=== PATIENT | female | born 1990 | race Caucasian/White ===

== ENCOUNTER 2021-08-21 14:59 | Emergency (ER) | payer BC, SELFPAY ==
[2021-08-21 15:30] VITALS: BP 127/101; PULSE 91; RESP 20; TEMP 36; O2SAT 98
--- NOTE | 2021-08-21 15:30 | ECG_ITS ---
Measurements Intervals [place] Rate: 78 P: 52 MD: 118 QRS: 89 QRSD: 93 T: 50 QT: 404 QTc: 462 Interpretive Statements SINUS RHYTHM WITH SHORT MD INTERVAL BORDERLINE T WAVE ABNORMALITY- ANTERIOR LEADS BORDERLINE ECG Electronically Signed On 08-21-2021 16:22:28 CDT by Jaret Linder D.O.
--- NOTE | 2021-08-21 15:36 | ED.ARRPALP ---
HPI - Arrhythmia/Palpitations General Chief Complaint: Arrhythmia/Palpitations Stated Complaint: increased HR, hot flashes, light headed, dizzy Time Seen by Provider: 08/21/21 15:36 Source: patient History of Present Illness HPI narrative: 31-year-old female of ADHD, anxiety with prior panic attacks presents to the ER with acute onset -- palpitation while she was doing some art work. No chest pain or shortness of breath she takes sertraline, Wellbutrin, Adderall, montelukast and control pills on a regular basis. The patient smoked some marijuana today. -- Nausea with multiple episodes of vomiting. Decreased oral intake. MD complaint: rapid heart beat and palpitations Onset (ago): hour(s) ( Started 3 hours ago.) Duration: constant Severity: mild Context: occurred during rest Associated symptoms: denies other symptoms, nausea and vomiting Related Data Home Medications Medication Instructions Recorded Confirmed albuterol sulfate 2 inh INHALATION Q4H PRN 08/21/21 08/21/21 bupropion HCl 300 mg PO DAILY 08/21/21 08/21/21 dextroamphetamine-amphetamine 20 mg PO DAILY 08/21/21 08/21/21 drospirenone-ethinyl estradiol 1 tablet PO DAILY 08/21/21 08/21/21 montelukast 10 mg PO DAILY 08/21/21 08/21/21 sertraline 50 mg PO DAILY 08/21/21 08/21/21 Allergies Allergy/AdvReac Type Severity Reaction Status Date / Time Penicillins Allergy Unknown Verified 08/21/21 15:59 Review of Systems Review of Systems: All systems reviewed & are unremarkable except as noted in HPI and below Constitutional: Constitutional: Reports as per HPI and Reports no additional constitutional complaints Eyes: Eyes: Reports as per HPI and Reports no additional eye complaints ENT: Reports system reviewed and no additional complaints, except as documented and Reports as per HPI Cardiovascular: Cardiovascular: Reports as per HPI and Reports no additional cardiovascular complaints Respiratory: Respiratory: Reports as per HPI and Reports no additional respiratory complaints Gastrointestinal: Gastrointestinal: Reports as per HPI, Reports no additional gastrointestinal complaints, Reports nausea and Reports vomiting Genitourinary: Genitourinary: Reports no additional female genitourinary complaints and Reports as per HPI Musculoskeletal: Musculoskeletal: Reports no additional musculoskeletal complaints and Reports as per HPI Integumentary/Breasts: Skin/Breast: Reports system reviewed and no additional complaints, except as docu and Reports as per HPI Neurologic: Reports system reviewed and no additional complaints, except as documented and Reports as per HPI Psychiatric: Psychiatric: Reports no additional psychiatric complaints and Reports as per HPI Endocrine: Endocrine: Reports no additional endocrine complaints and Reports as per HPI Hematologic/Lymphatic: Hematologic/Lymphatic: Reports no additional hematologic/lymphatic complaints and Reports as per HPI Allergic/Immunologic: Allergic/Immunologic: Reports no additional allergic/immunologic complaints and Reports as per HPI Exam Const: General: no acute distress Orientation/consciousness: patient oriented x3 HENMT: Head: normal to inspection Face and sinus: normal facial exam Eyes: Conjunctivae: conjunctivae normal Pupils: Equal, round and reactive pupils present Neck: Neck: normal visual inspection and no lymphadenopathy Chest: Chest palpation & inspection: normal inspection of the chest Resp: Effort & Inspection: normal respiratory effort Auscultation: clear to auscultation bilaterally Cardio: Rate: regular rate Rhythm: regular rhythm GI: Auscultation: normal bowel sounds : General: Yes no CVA tenderness Back/Spine/Pelvis: Back: no CVA tenderness Skin: General skin exam: normal color Rashes: no rashes Neuro: General: patient oriented x3, moves all extremities, no meningeal signs, no focal motor deficits and CN's II-XI intact bilaterally Extrem: General: normal to inspe
[2021-08-21 16:00] LABS: Appearance Urine Slightly Cloudy (Clear); Basophils Absolute Auto 0.05 K/mm3 (0.00-0.10); Basophils Percent Auto 0.5 % (0.0-1.0); Bilirubin Urine Negative (Negative); Blood Urine Negative (Negative); Color Urine Light Yellow (Yellow); Eosinophils Absolute Auto 0.04 K/mm3 (0.02-0.50); Eosinophils Percent Auto 0.4 % (1.0-6.0); Glucose Urine UA Negative (Negative); Hematocrit 38.8 % (35.0-49.0); Hemoglobin 13.3 g/dL (12.0-15.0); Immature Granulocyte Absolute 0.03 K/mm3 (0.00-0.00); Immature Granulocyte Percent A 0.3 % (0.0-0.0); Ketones Urine Negative (Negative); Leukocyte Esterase Ur Negative (Negative); Lymphocytes Absolute Auto 1.45 K/mm3 (1.10-4.50); Lymphocytes Percent Auto 15.7 % (18.0-42.0); Mean Corpuscular HGB Conc 34.3 g/dL (32.0-36.0); Mean Corpuscular Volume 84.5 fL (78.0-102.0); Monocytes Absolute Auto 0.32 K/mm3 (0.10-0.90); Monocytes Percent Auto 3.5 % (2.0-11.0); Neutrophils Absolute Auto 7.3 K/mm3 (1.7-7.2); Neutrophils Percent Auto 79.6 % (50.0-70.0); Nitrate Urine Negative (Negative); Platelet Count Result 341 K/mm3 (150-420); Protein Urine Negative (Negative); Red Blood Count 4.59 M/mm3 (4.20-5.40); Red Cell Distribution Width 11.9 % (11.6-14.4); Specific Grav Ur 1.025 (1.010-1.020); Urobilinogen Urine 0.2 mg/dL (0.2-1.0); White Blood Count 9.2 K/mm3 (4.8-10.8)
[2021-08-21 16:04] LABS: Pregnancy On Board Control Positive; Urine Pregnancy Test Negative
[2021-08-21 16:05] LABS: Add Urine Microscopic? YES; Bacteria Urine 3+ /hpf; RBC Urine None seen /hpf (0-2); Squamous Epithelial Cell Urine Moderate /hpf (Few); WBC Urine None seen /hpf (0-3)
[2021-08-21 16:09] VITALS: BP 124/96; PULSE 73; RESP 20; O2SAT 100
[2021-08-21 16:11] LABS: D Dimer 0.23 mg/L (0.19-0.50)
[2021-08-21 16:15] VITALS: PULSE 74; RESP 20; O2SAT 100
[2021-08-21 16:22] LABS: Alanine Aminotransferase 18 U/L (14-59); Albumin Level 3.6 g/dL (3.4-5.0); Alkaline Phosphatase 68 U/L (46-116); Anion Gap 7 mmol/L (8-16); Aspartate Amino Transferase 14 U/L (15-37); Bilirubin,Total 0.3 mg/dL (0.00-1.00); Blood Urea Nitrogen 8 mg/dL (7-18); Calcium 8.9 mg/dL (8.5-10.1); Carbon Dioxide 27 mmol/L (21-32); Chloride 100 mmol/L (98-108); Estimated CRCL calculation 65 ml/min; Estimated Glomerular Filt Rate > 60; Glucose 105 mg/dL (70-99); Osmolality Calculated 276 mOsm/kg (285-295); Potassium 3.8 mmol/L (3.5-5.1); Sodium 134 mmol/L (136-145); Thyroid Stimulating Hormone 2.58 uIU/mL (0.36-3.74); Total Protein 7.9 g/dL (6.4-8.2); Troponin I 4.2 ng/L (0.00-60.4)
[2021-08-21 16:32] VITALS: PULSE 79; RESP 20; O2SAT 99
[2021-08-21 16:45] VITALS: PULSE 82; RESP 20
[2021-08-21 16:53] VITALS: BP 133/83; PULSE 75; RESP 20; TEMP 36.7; O2SAT 99
== END 2021-08-21 17:02 | disposition home or self-care (01) ==
PROVIDERS: Emergency Provider Internal Medicine Critical Care Medicine; PCP Internal Medicine
DX: R00.2 Palpitations (principal); F41.9 Anxiety disorder, unspecified
CPT/HCPCS: 36415; 80053; 81001; 81025; 84443; 84484; 85025; 85380; 93005; 99283

== ENCOUNTER 2023-12-30 10:54 | Outpatient (CLI) | payer BC, SELFPAY ==
[2023-12-30 12:36] LABS: Basophils Absolute Auto 0.1 K/mm3 (0.0-0.1); Basophils Percent Auto 0.5 % (0.2-1.2); Eosinophils Absolute Auto 0.1 K/mm3 (0-0.3); Eosinophils Percent Auto 0.5 % (0-4.4); Hematocrit 37.4 % (37.0-47.0); Immature Granulocyte Absolute 0.06 K/mm3 (0.00-0.031); Immature Granulocyte Percent A 0.6 % (0-0.5); Lymphocytes Absolute Auto 2.17 K/mm3 (0.9-3.2); Lymphocytes Percent Auto 20.6 % (18.3-44.2); Mean Corpuscular HGB Conc 34.8 g/dl (32-36); Mean Corpuscular Hemoglobin 29.9 pg (26-34); Mean Platelet Volume 10.8 fl (7.4-10.4); Monocytes Absolute Auto 0.6 K/mm3 (0.1-0.6); Monocytes Percent Auto 5.4 % (2.6-8.5); Neutrophils Absolute Auto 7.6 K/mm3 (1.3-6.7); Neutrophils Percent Auto 72.4 % (45.5-73.1); Platelet Count Result 221 k/mm3 (150-375); Red Blood Count 4.35 M/mm3 (4.2-5.4); Red Cell Distribution Width 12.9 % (11.5-14.5); White Blood Count 10.5 K/mm3 (4.5-10.0)
[2023-12-30 12:46] LABS: Alanine Aminotransferase 18 U/L (6-35); Albumin Level 3.5 g/dL (3.5-5.1); Alkaline Phosphatase 108 U/L (38-126); Anion Gap 7 mmol/L (4-12); Aspartate Amino Transferase 24 U/L (14-36); Bilirubin,Total 0.4 mg/dL (0.2-1.3); Blood Urea Nitrogen 8 mg/dL (7-17); Calcium 8.9 mg/dL (8.4-10.2); Carbon Dioxide 23 mmol/L (22-30); Chloride 103 mmol/L (98-107); Estimated Glomerular Filt Rate > 60; Glucose 77 mg/dL (65-110); Sodium 133 mmol/L (137-145); Uric Acid 4.5 mg/dL (2.5-7.5)
[2023-12-30 12:48] LABS: Add Urine Microscopic? YES; Appearance Urine Cloudy (Clear); Bacteria Urine 3+ /hpf; Bilirubin Urine Negative (Negative); Blood Urine 1+ (Negative); Color Urine Yellow (Yellow); Glucose Urine UA Negative (Negative); Ketones Urine Trace mg/dL (Negative); Leukocyte Esterase Ur 1+ LEU/UL (Negative); Need Manual Microscopic Reviewed; Nitrate Urine Negative (Negative); Protein Urine Trace mg/dL (Negative); RBC Urine 21-50 /hpf (0-2); Specific Grav Ur 1.022 (1.001-1.035); Squamous Epithelial Cell Urine Few /hpf (Few); WBC Urine 21-50 /hpf (0-3); pH Urine 6.5 (5.0-9.0)
--- NOTE | 2023-12-30 13:03 | PC.NURSE ---
Dr Camejo informed of BP's and reactive tracing. Orders for labs.
[2023-12-30] MEDS: NIFEdipine 10 MG CAPSULE PO (13:38)
--- NOTE | 2023-12-30 14:00 | PC.NURSE ---
Dr Camejo on unit, BP's reviewed and ok to dc home.
[2023-12-30 14:04] VITALS: BMI 31.0
[2023-12-30 18:13] LABS: Creatinine Urine 229.8 mg/dL; Total Protein Urine Random 14 mg/dL; Ur Ttl Prot Creatinine Ratio 0.06 mg/mg (0-0.20)
== END 2023-12-30 14:04 | disposition home or self-care (01) ==
LOC: ANHOBOP 15:05
PROVIDERS: PCP Internal Medicine; Visit Provider Obstetrics & Gynecology
DX: O13.9 Gestational [pregnancy-induced] hypertension without significant proteinuria, unspecified trimester (principal)
CPT/HCPCS: 36415; 59025; 80053; 81001; 82570; 84156; 84550; 85025; 87086; A9270

== ENCOUNTER 2023-12-31 00:55 | Observation (INO) | payer OTHER, SELFPAY ==
[2023-12-31] VITALS (46 sets, daily range): BP systolic 120–173; BP diastolic 73–110; PULSE 53–118; O2SAT 96–99; BMI 30.6
--- NOTE | 2023-12-31 00:55 | PC.NURSE ---
Patient arrives to OB unit with complaints of N/V/D since 11pm, and a headache since 3:30pm. Patient states she took tylenol at 7pm this evening and has not had any relief with her headache. Patient was seen earlier today for elevated blood pressures, NST, and labs. Patient was started on procardia 30xl at home as well as a UTI medication. Patient states she took both medications at home. Patient is a EDC 02/20/24. Patient has postive movement. Patient denies vaginal bleeding and leaking of fluid. Patient has had emesis x5 since arriving as well as diarrhea x2.
[2023-12-31 01:33] LABS: Basophils Absolute Auto 0.1 K/mm3 (0.0-0.1); Basophils Percent Auto 0.4 % (0.2-1.2); Eosinophils Absolute Auto 0.1 K/mm3 (0-0.3); Eosinophils Percent Auto 0.8 % (0-4.4); Hematocrit 36.8 % (37.0-47.0); Hemoglobin 12.8 g/dL (12.0-15.0); Immature Granulocyte Absolute 0.08 K/mm3 (0.00-0.031); Immature Granulocyte Percent A 0.6 % (0-0.5); Lymphocytes Absolute Auto 2.89 K/mm3 (0.9-3.2); Mean Corpuscular HGB Conc 34.8 g/dl (32-36); Mean Corpuscular Hemoglobin 29.8 pg (26-34); Mean Corpuscular Volume 85.8 fl (80-100); Mean Platelet Volume 10.7 fl (7.4-10.4); Monocytes Absolute Auto 0.8 K/mm3 (0.1-0.6); Monocytes Percent Auto 5.5 % (2.6-8.5); Neutrophils Absolute Auto 9.9 K/mm3 (1.3-6.7); Neutrophils Percent Auto 71.7 % (45.5-73.1); Platelet Count Result 245 k/mm3 (150-375); Red Blood Count 4.29 M/mm3 (4.2-5.4); White Blood Count 13.8 K/mm3 (4.5-10.0)
[2023-12-31 01:43] LABS: Chloride 100 mmol/L (98-107); Potassium 3.9 mmol/L (3.4-5.0); Sodium 130 mmol/L (137-145)
[2023-12-31 01:44] LABS: Alanine Aminotransferase 18 U/L (6-35); Albumin Level 3.6 g/dL (3.5-5.1); Alkaline Phosphatase 115 U/L (38-126); Anion Gap 9 mmol/L (4-12); Aspartate Amino Transferase 26 U/L (14-36); Bilirubin,Total 0.4 mg/dL (0.2-1.3); Blood Urea Nitrogen 8 mg/dL (7-17); Calcium 8.7 mg/dL (8.4-10.2); Carbon Dioxide 21 mmol/L (22-30); Estimated CRCL calculation 95 ml/min; Estimated Glomerular Filt Rate > 60; Glucose 91 mg/dL (65-110); Uric Acid 4.1 mg/dL (2.5-7.5)
[2023-12-31] MEDS: LACTATED RINGERS 1,000 ML 999 ML IV CONT (01:54)
[2023-12-31] MEDS: ONDANSETRON INJ 4 MG/2 ML VIAL IV PUSH (01:54)
[2023-12-31] MEDS: diphenhydrAMINE HCl INJ 50 MG/ML VIAL 25 MG IV PUSH (01:54)
[2023-12-31 02:46] LABS: SARS-CoV-2 RNA PCR Negative (Negative)
--- NOTE | 2023-12-31 03:00 | PC.NURSE ---
Addendum entered by Mariel Plunkett RN 12/31/23 03:22: RN updated MD regarding patient status. RN notified MD that patient is rating her headache a 4-5/10 on the pain scale now and it was 8-9/10 before interventions. RN also notified MD of FHT tracing as well as contraction pattern. MD gave orders for blood pressures and contractions, see MAR. MD also gave orders to put patient in as observation. Original Note: RN updated MD regarding patient status. RN notified MD that patient is rating her headache a 4-5/10 on the pain scale now and it was 8-9/10 before interventions. RN also notified MD of FHT tracing as well as contraction pattern. MD gave orders for headache and contractions, see MAR. MD also gave orders to put patient in as observation.
[2023-12-31] MEDS: TERBUTALINE SULFATE 1 MG/ML VIAL 0.25 MG SUB-Q ×2 (04:01→04:40)
[2023-12-31] MEDS: DEXTROSE 5%/0.45% SOD CHL 1,000 ML 250 ML IV CONT (05:58)
[2023-12-31 06:13] LABS: Creatinine Urine 112.5 mg/dL; Total Protein Urine Random 24 mg/dL; Ur Ttl Prot Creatinine Ratio 0.21 mg/mg (0-0.20)
[2023-12-31 06:24] LABS: Fetal Fibronectin Negative
--- NOTE | 2023-12-31 06:35 | OBADM ---
This patient, Bailey Doyle, admitted to the OB room OB Post 116 for observation. Patient/family oriented to hospital policies and general routines including ID bracelet, bed and alarms, visiting hours, pain management, procedures, bathroom and other care routines, personal items, smoking policy, room service/diet, and visiting hours. Patient/Family are encouraged to report perceived risks to care and to ask questions if they do not understand what they are told or what they should do.
[2023-12-31 07:23] LABS: Add Urine Microscopic? YES; Appearance Urine Cloudy (Clear); Bacteria Urine 1+ /hpf; Bilirubin Urine Negative (Negative); Blood Urine Non-Hemolyzed Trace (Negative); Color Urine Yellow (Yellow); Glucose Urine UA Negative (Negative); Ketones Urine 1+ mg/dL (Negative); Leukocyte Esterase Ur 1+ LEU/UL (Negative); Need Manual Microscopic Reviewed; Nitrate Urine Negative (Negative); Non Pathogenic Casts 0-2; Protein Urine 1+ mg/dL (Negative); Specific Grav Ur 1.017 (1.001-1.035); Squamous Epithelial Cell Urine Occasional /hpf (Few); Urobilinogen Urine 0.2 mg/dL (<2.0); pH Urine 6.5 (5.0-9.0)
--- NOTE | 2023-12-31 09:07 | WPDOBADMIT ---
Obstetrics - Admit Note Admission Note: 33 y/o G1 at 32 weeks with known polyhydramnios, yesterday found to have elevated bp and cystitis. Was sent home on Procardia XL 30 mg daily and Macrobid 100 mg po bid. Came back last night with headache and associated vomiting. Was found to have contractions. Symptoms resolved after two doses of terbutaline, IV hydration, antiemetics. No headache, no contractions currently. FFN neg. AVSS NST reactive TOCO: no contractions currently. ABD soft, nontender, gravid EXT nontender, with 1+ edema Cervix closed per RN. A: IUP at 32 weeks with n/v, better now. contractions, resolved. Gestational HTN,. P: Home to continue Procardia and Macrobid. Zofran 4 mg odt q 6 h prn nausea. Collect 24 hour urine for protein. Call office for follow up.
--- NOTE | 2024-01-01 12:01 | PM.OBTRLD ---
OB - Triage/Final Diagnosis Visit Information Comments/Additional reasons for admission: I have assessed the risk for this patient, Bailey Doyle, and determined that she would benefit from observation care. Evaluation Laboratory results: Laboratory Tests 12/31/23 12/31/23 12/31/23 01:19 02:00 05:40 WBC 13.8 H RBC 4.29 Hgb 12.8 Hct 36.8 L MCV 85.8 MCH 29.8 MCHC 34.8 RDW 13.0 Plt Count 245 MPV 10.7 H Immature Gran % (Auto) 0.6 H Neut % (Auto) 71.7 Lymph % (Auto) 21.0 [place] % (Auto) 5.5 Eos % (Auto) 0.8 Baso % (Auto) 0.4 Lymph # (Auto) 2.89 [place] # (Auto) 0.8 H Eos # (Auto) 0.1 Baso # (Auto) 0.1 Abs Immat Gran (auto) 0.08 H Absolute Neuts (auto) 9.9 H Absolute Nucleated RBC 0.000 Nucleated RBC % 0.0 Sodium 130 L Potassium 3.9 Chloride 100 Carbon Dioxide 21 L Anion Gap 9 BUN 8 Creatinine 0.70 Estim Creat Clear Calc 95 Estimated GFR > 60 Glucose 91 Uric Acid 4.1 Calcium 8.7 Total Bilirubin 0.4 AST 26 ALT 18 Alkaline Phosphatase 115 Total Protein 7.0 Albumin 3.6 Urine Color Yellow Urine Appearance Cloudy H Urine pH 6.5 Ur Specific [place] 1.017 Urine Protein 1+ H Urine Glucose (UA) Negative Urine Ketones 1+ H Ur Blood (Man) Non-hemolyzed trace H Urine Nitrate Negative Urine Bilirubin Negative Urine Urobilinogen 0.2 Add Ur Microanalysis Reviewed Leukocyte Esterase Rfl 1+ H Urine RBC 11-20 H Urine WBC 11-20 H Ur Squamous Epith Cells Occasional Urine Bacteria 1+ H Urine Casts 0-2 U Random Total Protein Cancelled Urine Creatinine Cancelled Protein/Creat Ratio 2 Cancelled SARS-CoV-2 RNA (RT-PCR) Negative Fibronectin Negative 12/31/23 06:00 WBC RBC Hgb Hct MCV MCH MCHC RDW Plt Count MPV Immature Gran % (Auto) Neut % (Auto) Lymph % (Auto) [place] % (Auto) Eos % (Auto) Baso % (Auto) Lymph # (Auto) [place] # (Auto) Eos # (Auto) Baso # (Auto) Abs Immat Gran (auto) Absolute Neuts (auto) Absolute Nucleated RBC Nucleated RBC % Sodium Potassium Chloride Carbon Dioxide Anion Gap BUN Creatinine Estim Creat Clear Calc Estimated GFR Glucose Uric Acid Calcium Total Bilirubin AST ALT Alkaline Phosphatase Total Protein Albumin Urine Color Urine Appearance Urine pH Ur Specific [place] Urine Protein Urine Glucose (UA) Urine Ketones Ur Blood (Man) Urine Nitrate Urine Bilirubin Urine Urobilinogen Add Ur Microanalysis Leukocyte Esterase Rfl Urine RBC Urine WBC Ur Squamous Epith Cells Urine Bacteria Urine Casts U Random Total Protein 24 Urine Creatinine 112.5 Protein/Creat Ratio 2 0.21 H SARS-CoV-2 RNA (RT-PCR) Fibronectin Final Diagnosis (1) Gestational hypertension: Code(s): O13.9 - Gestational [-induced] hypertension without significant proteinuria, unspecified trimester Status: Acute
== END 2023-12-31 10:00 | disposition home or self-care (01) ==
LOC: ANHOBOP 01:05 → ANHOBPP 03:07
PROVIDERS: Admitting Provider Obstetrics & Gynecology; PCP Registered Nurse; Visit Provider Obstetrics & Gynecology
DX: O13.3 Gestational [pregnancy-induced] hypertension without significant proteinuria, third trimester (principal); O60.03 Preterm labor without delivery, third trimester; O40.3XX0 Polyhydramnios, third trimester, not applicable or unspecified; O23.13 Infections of bladder in pregnancy, third trimester; N30.90 Cystitis, unspecified without hematuria; Z3A.32 32 weeks gestation of pregnancy; Z20.822 Contact with and (suspected) exposure to COVID-19
CPT/HCPCS: 36415; 80053; 81001; 82570; 82731; 84156; 84550; 85025; 87635; 96372; G0378; G0379; J1200; J2405; J3105; J7120

== ENCOUNTER 2024-01-01 10:18 | Outpatient (NON) | payer OTHER, SELFPAY ==
[2024-01-01 10:52] VITALS: BMI 31.0
[2024-01-01 12:49] LABS: Total Volume 24 Hour Urine 1300 ml
[2024-01-01 12:49] LABS: Total Volume 24 Hour Urine 1300 ml
[2024-01-01 13:20] LABS: Total Protein Urine 24 Hr 221 mg/24hr (28-141); Total Protein Urine Random 17 mg/dL
[2024-01-01 13:21] LABS: Creatinine 24 Hour Urine 0.9 gm/24 (0.8-1.8); Creatinine Urine 69.5 mg/dL
== END 2024-01-01 10:19 | disposition home or self-care (01) ==
LOC: ANHOBOP 10:44
PROVIDERS: PCP Registered Nurse; Visit Provider Obstetrics & Gynecology
DX: O13.9 Gestational [pregnancy-induced] hypertension without significant proteinuria, unspecified trimester (principal); Z3A.00 Weeks of gestation of pregnancy not specified
CPT/HCPCS: 81050; 82570; 84156

== ENCOUNTER 2024-01-07 20:41 | Observation (INO) | payer OTHER, SELFPAY ==
[2024-01-07] VITALS (14 sets, daily range): BP systolic 144–185; BP diastolic 88–113; PULSE 64–82; BMI 29.8
[2024-01-07 18:21] LABS: Basophils Percent Auto 0.3 % (0.2-1.2); Eosinophils Percent Auto 0.4 % (0-4.4); Hematocrit 33.9 % (37.0-47.0); Hemoglobin 11.9 g/dL (12.0-15.0); Immature Granulocyte Absolute 0.02 K/mm3 (0.00-0.031); Immature Granulocyte Percent A 0.2 % (0-0.5); Lymphocytes Absolute Auto 2.47 K/mm3 (0.9-3.2); Lymphocytes Percent Auto 22.7 % (18.3-44.2); Mean Corpuscular HGB Conc 35.1 g/dl (32-36); Mean Corpuscular Hemoglobin 29.7 pg (26-34); Mean Corpuscular Volume 84.5 fl (80-100); Mean Platelet Volume 10.7 fl (7.4-10.4); Monocytes Absolute Auto 0.7 K/mm3 (0.1-0.6); Neutrophils Absolute Auto 7.7 K/mm3 (1.3-6.7); Neutrophils Percent Auto 70.4 % (45.5-73.1); Platelet Count Result 213 k/mm3 (150-375); Red Blood Count 4.01 M/mm3 (4.2-5.4); White Blood Count 10.9 K/mm3 (4.5-10.0)
[2024-01-07 18:29] LABS: Creatinine Urine 102.2 mg/dL
[2024-01-07 18:30] LABS: Anion Gap 7 mmol/L (4-12); Carbon Dioxide 20 mmol/L (22-30); Chloride 103 mmol/L (98-107); Potassium 3.7 mmol/L (3.4-5.0); Sodium 130 mmol/L (137-145)
[2024-01-07 18:31] LABS: Add Urine Microscopic? YES; Alanine Aminotransferase 16 U/L (6-35); Albumin Level 3.3 g/dL (3.5-5.1); Alkaline Phosphatase 100 U/L (38-126); Appearance Urine Cloudy (Clear); Aspartate Amino Transferase 28 U/L (14-36); Bacteria Urine 4+ /hpf; Bilirubin Urine Negative (Negative); Bilirubin,Total 0.3 mg/dL (0.2-1.3); Blood Urea Nitrogen 9 mg/dL (7-17); Blood Urine Non-Hemolyzed Trace (Negative); Calcium 8.6 mg/dL (8.4-10.2); Color Urine Yellow (Yellow); Estimated Glomerular Filt Rate > 60; Glucose 83 mg/dL (65-110); Glucose Urine UA Negative (Negative); Ketones Urine Trace mg/dL (Negative); Leukocyte Esterase Ur 1+ LEU/UL (Negative); Mucus Urine Present /lpf; Need Manual Microscopic Reviewed; Nitrate Urine Negative (Negative); Protein Urine 1+ mg/dL (Negative); Specific Grav Ur 1.027 (1.001-1.035); Squamous Epithelial Cell Urine Moderate /hpf (Few); Uric Acid 4.5 mg/dL (2.5-7.5); WBC Urine 51-100 /hpf (0-3); pH Urine 6.5 (5.0-9.0)
[2024-01-07] MEDS: LABETALOL HCL 100 MG TABLET 200 MG PO (18:37)
[2024-01-07 18:41] LABS: Total Protein Urine Random 13 mg/dL; Ur Ttl Prot Creatinine Ratio 0.13 mg/mg (0-0.20)
[2024-01-07] MEDS: BETAMETHASONE SOD PHOS/ACETATE 30 MG/5 ML VIAL 12 MG IM (18:46)
[2024-01-07] MEDS: NIFEdipine 30 MG TAB.ER.24 PO (19:20)
[2024-01-07] MEDS: hydrALAZINE HCL 20 MG/ML VIAL 5 MG IV PUSH (20:21)
[2024-01-07] MEDS: LACTATED RINGERS 1,000 ML 125 ML IV CONT (20:31)
[2024-01-07] MEDS: LORATADINE 10 MG TABLET PO (20:58)
--- NOTE | 2024-01-07 21:54 | OBADM ---
This patient, Bailey Doyle, admitted to the OB room OB Post 115 for observation. Patient/family oriented to hospital policies and general routines including ID bracelet, bed and alarms, visiting hours, pain management, procedures, bathroom and other care routines, personal items, smoking policy, room service/diet, and visiting hours. Patient/Family are encouraged to report perceived risks to care and to ask questions if they do not understand what they are told or what they should do.
[2024-01-08] VITALS (40 sets, daily range): BP systolic 136–173; BP diastolic 85–114; PULSE 76–119; TEMP 36.5–36.9
--- NOTE | 2024-01-08 08:45 | PC.NURSE ---
Dr. Camejo reviewed BPs.
[2024-01-08] MEDS: LABETALOL HCL 100 MG TABLET 200 MG PO ×2 (08:48→15:48)
--- NOTE | 2024-01-08 08:52 | PC.NURSE ---
Dr. Camejo at bedside to assess pt and discuss plan of care.
--- NOTE | 2024-01-08 11:10 | PC.NURSE ---
Called Dr. Camejo with pt update. BPs given. Informed of contractions q 2-6 min, mostly q 4-6. Pt states that she only feels movement. No new orders at this time. Dr. Camejo will come to see pt.
--- NOTE | 2024-01-08 12:24 | PC.NURSE ---
Dr. Camejo on unit. BPs and contractions reviewed. BPs q 30 min until decreased. August D/C TOCO and monitor with NST.
--- NOTE | 2024-01-08 12:29 | PM.IMHP ---
H&P: HPI History of Present Illness Date/Time: 01/08/24 12:29 Chief Complaint: Elevated bp Narrative: 33 y/o G1 at 33 6/7 weeks with gestational HTN who had elevated bp at home yesterday, presented to L&D. No headache or abdominal pain. She has polyhydramnios and has an appointment with [facility] next week. 24 hour urine protein was 221 last week. Has been taking Procardia XL 30 mg daily, last dose last evening. Has received hydralazine x 1, and has started labetalol 200 mg po q 8 hours. Review of Systems Review of Systems: All systems reviewed & are unremarkable except as noted in HPI and below Meds Home Medications and Allergies Home Medications Medication Instructions Recorded Confirmed Type albuterol sulfate 90 mcg/actuation 2 inh inhalation Q4H PRN Shortness 08/21/21 01/07/24 History aerosol inhaler Of Breath montelukast 10 mg tablet 10 mg PO DAILY 08/21/21 01/07/24 History sertraline 50 mg tablet 100 mg PO DAILY 08/21/21 01/07/24 History nifedipine 30 mg tablet,extended 30 mg PO DAILY 60 days #60 tabs 12/30/23 01/07/24 Rx release 24 hr (Procardia XL) ondansetron 4 mg disintegrating 4 mg PO Q6H PRN nausea and 12/31/23 01/07/24 Rx tablet vomiting #20 tabs Zyrtec 10 mg PO QHS 01/07/24 01/07/24 History Allergies Allergy/AdvReac Type Severity Reaction Status Date / Time Penicillins Allergy Mild Unknown Verified 01/07/24 18:42 nut - unspecified Allergy Unknown Verified 01/07/24 18:56 Sulfa (Sulfonamide Allergy Unknown Verified 01/07/24 18:56 Antibiotics) Vital Signs Vital Signs - 24 hr 01/07/24 17:45 01/07/24 17:56 01/07/24 18:15 Temperature Pulse Rate 75 64 66 Blood Pressure 172/112 H 175/107 H 171/113 H Oxygen Delivery 01/07/24 18:30 01/07/24 18:45 01/07/24 19:00 Temperature Pulse Rate 67 67 68 Blood Pressure 185/112 H 169/112 H 179/107 H Oxygen Delivery 01/07/24 19:15 01/07/24 19:30 01/07/24 19:45 Temperature Pulse Rate 69 74 65 Blood Pressure 178/111 H 166/104 H 173/106 H Oxygen Delivery 01/07/24 20:00 01/07/24 20:15 01/07/24 20:30 Temperature Pulse Rate 74 74 79 Blood Pressure 161/107 H 156/111 H 148/88 H Oxygen Delivery 01/07/24 20:45 01/08/24 00:01 01/08/24 04:27 Temperature Pulse Rate 82 78 78 Blood Pressure 144/95 H 154/98 H 153/101 H Oxygen Delivery 01/08/24 08:40 01/08/24 08:45 01/08/24 09:00 Temperature Pulse Rate 77 86 94 Blood Pressure 165/107 H 166/104 H 160/109 H Oxygen Delivery 01/08/24 09:30 01/08/24 10:00 01/08/24 10:30 Temperature Pulse Rate 90 88 96 Blood Pressure 159/108 H 159/103 H 151/106 H Oxygen Delivery 01/08/24 11:00 01/08/24 11:30 01/08/24 12:00 Temperature Pulse Rate 97 101 H 92 Blood Pressure 141/94 H 146/104 H 154/101 H Oxygen Delivery 01/07/24 18:37 01/07/24 21:53 01/08/24 08:40 Temperature 36.9 C Pulse Rate 68 Blood Pressure Oxygen Delivery Room Air 01/08/24 08:48 01/08/24 11:43 Temperature 36.5 C Pulse Rate 86 Blood Pressure Oxygen Delivery Exam Const: Orientation/consciousness: patient oriented x3 Other: Well-developed, well-nourished female in no acute distress. Neck: Thyroid: thyroid normal Lymphatic: no lymphadenopathy noted (in neck, axilla or inguinal nodes) Resp: Effort & Inspection: normal respiratory effort Auscultation: clear to auscultation bilaterally Cardio: Rate: regular rate Rhythm: regular rhythm Heart sounds: S1 normal heart sound present and S2 normal heart sound present GI: Other: ABD: Soft, nontender, nondistended, gravid. NST reactive. TOCO irregular contractions. No guarding or rebound tenderness. No hepatosplenomegaly. : General: Yes no CVA tenderness Other: Deferred. Back/Spine/Pelvis: Back: no CVA tenderness Skin: General skin exam: normal color and no rashes or lesions noted Neuro: General: patient oriented x3 Extrem: Other: Extremities: nontender w
[2024-01-08] MEDS: NIFEdipine 30 MG TAB.ER.24 PO (13:03)
--- NOTE | 2024-01-08 15:49 | PC.NURSE ---
Dr. Camejo on unit. Informed of BPs. Order received to give Labetalol 200mg now.
[2024-01-08] MEDS: NIFEdipine 10 MG CAPSULE PO (17:30)
[2024-01-08 17:51] LABS: Basophils Percent Auto 0.2 % (0.2-1.2); Hematocrit 33.9 % (37.0-47.0); Hemoglobin 11.7 g/dL (12.0-15.0); Immature Granulocyte Absolute 0.07 K/mm3 (0.00-0.031); Immature Granulocyte Percent A 0.5 % (0-0.5); Lymphocytes Absolute Auto 2.31 K/mm3 (0.9-3.2); Lymphocytes Percent Auto 17.8 % (18.3-44.2); Mean Corpuscular HGB Conc 34.5 g/dl (32-36); Mean Corpuscular Hemoglobin 29.7 pg (26-34); Mean Platelet Volume 10.7 fl (7.4-10.4); Monocytes Absolute Auto 0.9 K/mm3 (0.1-0.6); Monocytes Percent Auto 6.5 % (2.6-8.5); Neutrophils Absolute Auto 9.7 K/mm3 (1.3-6.7); Platelet Count Result 215 k/mm3 (150-375); Red Blood Count 3.94 M/mm3 (4.2-5.4); Red Cell Distribution Width 13.1 % (11.5-14.5)
[2024-01-08 18:01] LABS: Alanine Aminotransferase 17 U/L (6-35); Albumin Level 3.3 g/dL (3.5-5.1); Alkaline Phosphatase 108 U/L (38-126); Anion Gap 9 mmol/L (4-12); Aspartate Amino Transferase 21 U/L (14-36); Bilirubin,Total 0.4 mg/dL (0.2-1.3); Blood Urea Nitrogen 8 mg/dL (7-17); Calcium 9.2 mg/dL (8.4-10.2); Carbon Dioxide 19 mmol/L (22-30); Chloride 102 mmol/L (98-107); Estimated CRCL calculation 74 ml/min; Estimated Glomerular Filt Rate > 60; Glucose 93 mg/dL (65-110); Potassium 3.5 mmol/L (3.4-5.0); Sodium 130 mmol/L (137-145); Uric Acid 4.7 mg/dL (2.5-7.5)
[2024-01-08] MEDS: MONTELUKAST SODIUM 10 MG TABLET PO (18:16)
[2024-01-08] MEDS: SERTRALINE HCL 50 MG TABLET 100 MG PO (18:17)
[2024-01-08] MEDS: BETAMETHASONE SOD PHOS/ACETATE 30 MG/5 ML VIAL 12 MG IM (18:18)
[2024-01-08] MEDS: NIFEdipine 30 MG TAB.ER.24 60 MG PO (20:08)
[2024-01-09] VITALS (35 sets, daily range): BP systolic 125–174; BP diastolic 75–111; PULSE 85–114; RESP 16; TEMP 36.6; O2SAT 99–100
--- NOTE | 2024-01-09 06:40 | PC.NURSE ---
Pt is sleeping and lights are off with significant other sleeping on the couch.
--- NOTE | 2024-01-09 07:55 | PC.NURSE ---
Dr. Camejo in to see and assess pt. Discussed plans for discharge today after breakfast and NST. discussed Procardia XL and Labetal dosages and times with pt. Pt has an appointment with [facility] on Thursday this week. Pt verbalizes understanding.
--- NOTE | 2024-01-09 07:59 | PM.OBPNVD ---
OB - PN: Subj Subjective Date/time seen: 01/09/24 07:59 Slept well last night. No headache or abdominal pain. BP 120-150/80-100 overnight. NST reactive TOCO: irregular contractions ABD soft, nontender, gravid EXT nontender A: Gestational HTN. Polyhydramnios. BP much better today. P: Home on Procardia XL 30 / labetalol 200 in AM and Procardia LX 60/ labetalol 200 in pm. Has appointment with [facility] on 01/12. OB - PN: Obj Data Labs 01/08/24 17:37 01/08/24 17:37 Labs: Laboratory Results - last 24 hr 01/08/24 17:37 WBC 13.0 H RBC 3.94 L Hgb 11.7 L Hct 33.9 L MCV 86.0 MCH 29.7 MCHC 34.5 RDW 13.1 Plt Count 215 MPV 10.7 H Immature Gran % (Auto) 0.5 Neut % (Auto) 75.0 H Lymph % (Auto) 17.8 L [place] % (Auto) 6.5 Eos % (Auto) 0.0 Baso % (Auto) 0.2 Lymph # (Auto) 2.31 [place] # (Auto) 0.9 H Eos # (Auto) 0.0 Baso # (Auto) 0.0 Abs Immat Gran (auto) 0.07 H Absolute Neuts (auto) 9.7 H Absolute Nucleated RBC 0.000 Nucleated RBC % 0.0 Sodium 130 L Potassium 3.5 Chloride 102 Carbon Dioxide 19 L Anion Gap 9 BUN 8 Creatinine 0.90 Estim Creat Clear Calc 74 Estimated GFR > 60 Glucose 93 Uric Acid 4.7 Calcium 9.2 Total Bilirubin 0.4 AST 21 ALT 17 Alkaline Phosphatase 108 Total Protein 7.0 Albumin 3.3 L
--- NOTE | 2024-01-09 08:36 | PC.NURSE ---
Dr. Camejo on unit and updated on pt's BP's since she has been awake. OK to give 0900 meds now.
[2024-01-09] MEDS: LABETALOL HCL 100 MG TABLET 200 MG PO (08:43)
[2024-01-09] MEDS: SERTRALINE HCL 50 MG TABLET 100 MG PO (08:43)
[2024-01-09] MEDS: MULTIVIT/MIN/PREN/FOL AC/IRON TABLET 1 TAB PO (08:44)
[2024-01-09] MEDS: NIFEdipine 30 MG TAB.ER.24 PO (08:44)
--- NOTE | 2024-01-09 09:42 | PC.NURSE ---
Pt has finished breakfast and voided. monitor applied for NST.
--- NOTE | 2024-01-13 08:27 | PM.OBTRLD ---
OB - Triage/Final Diagnosis Visit Information Comments/Additional reasons for admission: I have assessed the risk for this patient, Bailey Doyle, and determined that she would benefit from observation care. Evaluation Laboratory results: Laboratory Tests 01/07/24 01/08/24 17:55 17:37 WBC 10.9 H 13.0 H RBC 4.01 L 3.94 L Hgb 11.9 L 11.7 L Hct 33.9 L 33.9 L MCV 84.5 86.0 MCH 29.7 29.7 MCHC 35.1 34.5 RDW 13.0 13.1 Plt Count 213 215 MPV 10.7 H 10.7 H Immature Gran % (Auto) 0.2 0.5 Neut % (Auto) 70.4 75.0 H Lymph % (Auto) 22.7 17.8 L Martin % (Auto) 6.0 6.5 Eos % (Auto) 0.4 0.0 Baso % (Auto) 0.3 0.2 Lymph # (Auto) 2.47 2.31 Martin # (Auto) 0.7 H 0.9 H Eos # (Auto) 0.0 0.0 Baso # (Auto) 0.0 0.0 Abs Immat Gran (auto) 0.02 0.07 H Absolute Neuts (auto) 7.7 H 9.7 H Absolute Nucleated RBC 0.000 0.000 Nucleated RBC % 0.0 0.0 Sodium 130 L 130 L Potassium 3.7 3.5 Chloride 103 102 Carbon Dioxide 20 L 19 L Anion Gap 7 9 BUN 9 8 Creatinine 0.70 0.90 Estim Creat Clear Calc Not Reportable 74 Estimated GFR > 60 > 60 Glucose 83 93 Uric Acid 4.5 4.7 Calcium 8.6 9.2 Total Bilirubin 0.3 0.4 AST 28 21 ALT 16 17 Alkaline Phosphatase 100 108 Total Protein 7.0 7.0 Albumin 3.3 L 3.3 L Urine Color Yellow Urine Appearance Cloudy H Urine pH 6.5 Ur Specific [place] 1.027 Urine Protein 1+ H Urine Glucose (UA) Negative Urine Ketones Trace H Ur Blood (Man) Non-hemolyzed trace H Urine Nitrate Negative Urine Bilirubin Negative Urine Urobilinogen 1.0 Add Ur Microanalysis Reviewed Leukocyte Esterase Rfl 1+ H Urine RBC 11-20 H Urine WBC 51-100 H Ur Squamous Epith Cells Moderate Urine Bacteria 4+ H Urine Casts 6-10 Urine Mucus Present U Random Total Protein 13 Urine Creatinine 102.2 Protein/Creat Ratio 2 0.13 Final Diagnosis (1) Gestational hypertension: Code(s): O13.9 - Gestational [-induced] hypertension without significant proteinuria, unspecified trimester Status: Acute
== END 2024-01-09 11:15 | disposition home or self-care (01) ==
LOC: ANHOBOP 21:27 → ANHOBPP 21:27
PROVIDERS: Obstetrics & Gynecology; Admitting Provider Obstetrics & Gynecology; PCP Registered Nurse; Visit Provider Obstetrics & Gynecology
DX: O13.3 Gestational [pregnancy-induced] hypertension without significant proteinuria, third trimester (principal); O40.3XX0 Polyhydramnios, third trimester, not applicable or unspecified; Z3A.33 33 weeks gestation of pregnancy
CPT/HCPCS: 36415; 59025; 80053; 81001; 82570; 84156; 84550; 85025; 87086; 96372; 96374; A9270; G0378; G0379; J0360; J0702; J7120

== ENCOUNTER 2024-01-12 02:13 | Inpatient (IN) | payer OTHER, SELFPAY ==
[2024-01-12] VITALS (92 sets, daily range): BP systolic 129–161; BP diastolic 81–117; PULSE 78–119; TEMP 36.8; O2SAT 96–100; BMI 30.2
--- NOTE | ~2024-01-12 | US_ITS ---
Pelvic ultrasound. Clinical History: Check cervical length and placenta, third trimester Technique: Realtime transabdominal and transvaginal scanning of the pelvis was performed. Color flow Doppler and Doppler spectral analysis were performed. Findings: Cervix is closed, measuring 3.6 cm in length. Cephalic presentation noted. Placenta anterio rly located. No evidence for placenta previa. heart rate 125 bpm.. Impression: Cervix closed, measures 3.6 cm in length. Anterior placenta. heart rate 125 bpm. Reviewed, dictated and finalized at location M. Impression: Cervix closed, measures 3.6 cm in length. Anterior placenta. heart rate 125 bpm.
[2024-01-12 03:10] LABS: Basophils Absolute Auto 0.1 K/mm3 (0.0-0.1); Basophils Percent Auto 0.4 % (0.2-1.2); Eosinophils Absolute Auto 0.1 K/mm3 (0-0.3); Eosinophils Percent Auto 0.7 % (0-4.4); Hematocrit 34.5 % (37.0-47.0); Hemoglobin 12.2 g/dL (12.0-15.0); Immature Granulocyte Absolute 0.09 K/mm3 (0.00-0.031); Immature Granulocyte Percent A 0.8 % (0-0.5); Lymphocytes Absolute Auto 2.98 K/mm3 (0.9-3.2); Mean Corpuscular HGB Conc 35.4 g/dl (32-36); Mean Corpuscular Hemoglobin 30.2 pg (26-34); Mean Corpuscular Volume 85.4 fl (80-100); Mean Platelet Volume 10.7 fl (7.4-10.4); Monocytes Absolute Auto 0.8 K/mm3 (0.1-0.6); Neutrophils Absolute Auto 7.9 K/mm3 (1.3-6.7); Neutrophils Percent Auto 66.1 % (45.5-73.1); Platelet Count Result 230 k/mm3 (150-375); Red Blood Count 4.04 M/mm3 (4.2-5.4); White Blood Count 11.9 K/mm3 (4.5-10.0)
[2024-01-12] MEDS: NIFEdipine 10 MG CAPSULE 20 MG PO (03:15)
[2024-01-12 03:21] LABS: Alanine Aminotransferase 25 U/L (6-35); Albumin Level 3.2 g/dL (3.5-5.1); Alkaline Phosphatase 105 U/L (38-126); Anion Gap 9 mmol/L (4-12); Aspartate Amino Transferase 28 U/L (14-36); Bilirubin,Total 0.4 mg/dL (0.2-1.3); Blood Urea Nitrogen 11 mg/dL (7-17); Calcium 9.1 mg/dL (8.4-10.2); Carbon Dioxide 19 mmol/L (22-30); Chloride 102 mmol/L (98-107); Estimated Glomerular Filt Rate > 60; Glucose 86 mg/dL (65-110); Potassium 3.9 mmol/L (3.4-5.0); Sodium 130 mmol/L (137-145)
--- NOTE | 2024-01-12 03:24 | OBADM ---
This patient, Bailey Doyle, admitted to the OB room Labor/Delivery/Recovery 105 for observation. Patient/family oriented to hospital policies and general routines including ID bracelet, bed and alarms, visiting hours, pain management, procedures, bathroom and other care routines, personal items, smoking policy, room service/diet, and visiting hours. Patient/Family are encouraged to report perceived risks to care and to ask questions if they do not understand what they are told or what they should do.
[2024-01-12] MEDS: NIFEdipine 10 MG CAPSULE PO (05:27)
[2024-01-12 05:37] LABS: Uric Acid 4.4 mg/dL (2.5-7.5)
--- NOTE | 2024-01-12 06:32 | PM.IMHP ---
H&P: HPI History of Present Illness Date/Time: 01/12/24 06:32 Chief Complaint: Bleeding to Narrative: 33-year-old 1 para 0 at 34 weeks gestation with known hypertension on Procardia will admitted with vaginal bleeding. She had no pain or discomfort but noticing bleeding which she wiped it was ring down her leg. Ultrasound here has shown the cervix to be more than 3cm and the placenta appears to be within normal limits. Her uterus is soft. The bleeding has stopped however her pressures have remained high despite doses of nifedipine. She has already received doses of [place] in the past. Meds Home Medications and Allergies Home Medications Medication Instructions Recorded Confirmed Type albuterol sulfate 90 mcg/actuation 2 inh inhalation Q4H PRN Shortness 08/21/21 01/07/24 History aerosol inhaler Of Breath montelukast 10 mg tablet 10 mg PO DAILY 08/21/21 01/07/24 History sertraline 50 mg tablet 100 mg PO DAILY 08/21/21 01/07/24 History ondansetron 4 mg disintegrating 4 mg PO Q6H PRN nausea and 12/31/23 01/07/24 Rx tablet vomiting #20 tabs Zyrtec 10 mg PO QHS 01/07/24 01/07/24 History labetalol 200 mg tablet 200 mg PO Q12H #60 tabs 01/08/24 Rx nifedipine 60 mg tablet,extended 60 mg PO BID 01/12/24 History release 24 hr (Procardia XL) Allergies Allergy/AdvReac Type Severity Reaction Status Date / Time nut - unspecified Allergy Severe Anaphylaxis Verified 01/12/24 03:55 Penicillins Allergy Mild Unknown Verified 01/07/24 18:42 legumes Allergy Unknown Verified 01/12/24 03:55 Sulfa (Sulfonamide Allergy Unknown Verified 01/07/24 18:56 Antibiotics) Vital Signs Vital Signs - 24 hr 01/12/24 02:21 01/12/24 02:26 01/12/24 02:29 Temperature Pulse Rate 85 Blood Pressure 154/109 H Pulse Oximetry 99 99 Oxygen Delivery 01/12/24 02:31 01/12/24 02:36 01/12/24 02:41 Temperature Pulse Rate Blood Pressure Pulse Oximetry 98 100 98 Oxygen Delivery 01/12/24 02:45 01/12/24 02:46 01/12/24 02:51 Temperature Pulse Rate 81 Blood Pressure 156/106 H Pulse Oximetry 99 99 Oxygen Delivery 01/12/24 02:56 01/12/24 03:00 01/12/24 03:01 Temperature Pulse Rate 85 Blood Pressure 148/105 H Pulse Oximetry 98 99 Oxygen Delivery 01/12/24 03:06 01/12/24 03:11 01/12/24 03:15 Temperature Pulse Rate 89 Blood Pressure 157/110 H Pulse Oximetry 98 99 Oxygen Delivery 01/12/24 03:16 01/12/24 03:21 01/12/24 03:26 Temperature Pulse Rate Blood Pressure Pulse Oximetry 99 99 99 Oxygen Delivery 01/12/24 03:30 01/12/24 03:31 01/12/24 03:36 Temperature Pulse Rate 100 Blood Pressure 135/98 H Pulse Oximetry 99 98 Oxygen Delivery 01/12/24 03:44 01/12/24 03:49 01/12/24 03:54 Temperature Pulse Rate Blood Pressure Pulse Oximetry 99 99 99 Oxygen Delivery 01/12/24 03:59 01/12/24 04:00 01/12/24 04:04 Temperature Pulse Rate 91 Blood Pressure 140/102 H Pulse Oximetry 99 100 Oxygen Delivery 01/12/24 04:09 01/12/24 04:14 01/12/24 04:15 Temperature Pulse Rate 88 Blood Pressure 150/104 H Pulse Oximetry 100 99 Oxygen Delivery 01/12/24 04:19 01/12/24 04:24 01/12/24 04:29 Temperature Pulse Rate Blood Pressure Pulse Oximetry 99 98 98 Oxygen Delivery 01/12/24 04:30 01/12/24 04:34 01/12/24 04:39 Temperature Pulse Rate 86 Blood Pressure 148/106 H Pulse Oximetry 97 98 Oxygen Delivery 01/12/24 04:44 01/12/24 04:45 01/12/24 04:49 Temperature Pulse Rate 89 Blood Pressure 155/107 H Pulse Oximetry 100 99 Oxygen Delivery 01/12/24 04:54 01/12/24 04:59 01/12/24 05:00 Temperature Pulse Rate 83 Blood Pressure 153/106 H Pulse Oximetry 99 98 Oxygen Delivery 01/12/24 05:04 01/12/24 05:09 01/12/24 05:14 Temperature Pulse Rate Blood Pressure Pulse Oximetry 99 98 99 Oxygen Delivery 01/11
[2024-01-12] MEDS: LABETALOL HCL 100 MG TABLET 200 MG PO (08:59)
[2024-01-12] MEDS: NIFEdipine 30 MG TAB.ER.24 60 MG PO (09:00)
--- NOTE | 2024-01-12 09:05 | PC.NURSE ---
Report on transfer given to Lesia tinajero RN at [facility] unit.
--- NOTE | 2024-01-12 09:14 | PM.IMHP ---
H&P: HPI History of Present Illness Date/Time: 01/12/24 09:14 Chief Complaint: Vaginal bleeding Narrative: 33 y/o G1 at 34 3/7 weeks with gestational HTN, on antihypertensives, recently received betamethasone course. Woke up around 0100 with vaginal bleeding. No bleeding currently. No pain. Feels mild contractions. Diagnosis of polyhydramnios, had appointment with [facility] scheduled for tomorrow. Review of Systems Review of Systems: All systems reviewed & are unremarkable except as noted in HPI and below [facility] Past Medical History Medical History ADHD Anxiety Asthma Meds Home Medications and Allergies Home Medications Medication Instructions Recorded Confirmed Type albuterol sulfate 90 mcg/actuation 2 inh inhalation Q4H PRN Shortness 08/21/21 01/07/24 History aerosol inhaler Of Breath montelukast 10 mg tablet 10 mg PO DAILY 08/21/21 01/07/24 History sertraline 50 mg tablet 100 mg PO DAILY 08/21/21 01/07/24 History ondansetron 4 mg disintegrating 4 mg PO Q6H PRN nausea and 12/31/23 01/07/24 Rx tablet vomiting #20 tabs Zyrtec 10 mg PO QHS 01/07/24 01/07/24 History labetalol 200 mg tablet 200 mg PO Q12H #60 tabs 01/08/24 Rx nifedipine 60 mg tablet,extended 60 mg PO BID 01/12/24 History release 24 hr (Procardia XL) Allergies Allergy/AdvReac Type Severity Reaction Status Date / Time nut - unspecified Allergy Severe Anaphylaxis Verified 01/12/24 03:55 Penicillins Allergy Mild Unknown Verified 01/07/24 18:42 legumes Allergy Unknown Verified 01/12/24 03:55 Sulfa (Sulfonamide Allergy Unknown Verified 01/07/24 18:56 Antibiotics) Vital Signs Vital Signs - 24 hr 01/12/24 02:21 01/12/24 02:26 01/12/24 02:29 Temperature Pulse Rate 85 Blood Pressure 154/109 H Pulse Oximetry 99 99 Oxygen Delivery 01/12/24 02:31 01/12/24 02:36 01/12/24 02:41 Temperature Pulse Rate Blood Pressure Pulse Oximetry 98 100 98 Oxygen Delivery 01/12/24 02:45 01/12/24 02:46 01/12/24 02:51 Temperature Pulse Rate 81 Blood Pressure 156/106 H Pulse Oximetry 99 99 Oxygen Delivery 01/12/24 02:56 01/12/24 03:00 01/12/24 03:01 Temperature Pulse Rate 85 Blood Pressure 148/105 H Pulse Oximetry 98 99 Oxygen Delivery 01/12/24 03:06 01/12/24 03:11 01/12/24 03:15 Temperature Pulse Rate 89 Blood Pressure 157/110 H Pulse Oximetry 98 99 Oxygen Delivery 01/12/24 03:16 01/12/24 03:21 01/12/24 03:26 Temperature Pulse Rate Blood Pressure Pulse Oximetry 99 99 99 Oxygen Delivery 01/12/24 03:30 01/12/24 03:31 01/12/24 03:36 Temperature Pulse Rate 100 Blood Pressure 135/98 H Pulse Oximetry 99 98 Oxygen Delivery 01/12/24 03:44 01/12/24 03:49 01/12/24 03:54 Temperature Pulse Rate Blood Pressure Pulse Oximetry 99 99 99 Oxygen Delivery 01/12/24 03:59 01/12/24 04:00 01/12/24 04:04 Temperature Pulse Rate 91 Blood Pressure 140/102 H Pulse Oximetry 99 100 Oxygen Delivery 01/12/24 04:09 01/12/24 04:14 01/12/24 04:15 Temperature Pulse Rate 88 Blood Pressure 150/104 H Pulse Oximetry 100 99 Oxygen Delivery 01/12/24 04:19 01/12/24 04:24 01/12/24 04:29 Temperature Pulse Rate Blood Pressure Pulse Oximetry 99 98 98 Oxygen Delivery 01/12/24 04:30 01/12/24 04:34 01/12/24 04:39 Temperature Pulse Rate 86 Blood Pressure 148/106 H Pulse Oximetry 97 98 Oxygen Delivery 01/12/24 04:44 01/12/24 04:45 01/12/24 04:49 Temperature Pulse Rate 89 Blood Pressure 155/107 H Pulse Oximetry 100 99 Oxygen Delivery 01/12/24 04:54 01/12/24 04:59 01/12/24 05:00 Temperature Pulse Rate 83 Blood Pressure 153/106 H Pulse Oximetry 99 98 Oxygen Delivery 01/12/24 05:04 01/12/24 05:09 01/12/24 05:14 Temperature Pulse Rate Blood Pressure Pulse Oximetry 99 9
--- NOTE | 2024-01-12 10:30 | PC.NURSE ---
[facility] here to transport pt to [facility].
--- NOTE | 2024-01-13 08:32 | P.TS_ITS ---
Transfer Discharge Sum: Prov Provider Date of admission: 01/12/24 09:43 Primary care physician: Aileen Ramos, HEALTH PRACTICE MANAGER Admitting clinician: Bobby Grimm MD Attending physician on admission: Waqas Camejo Attending physician on discharge: Waqas Camejo Discharging clinician: Waqas Camejo DS: Admitting Diagnosis Discharge Date 01/12/24 Admitting Diagnosis Vaginal bleeding Gestational hypertension Intrauterine at 34 3/7 weeks DS: Discharge Diagnosis Discharge Diagnosis (1) Vaginal bleeding in : Code(s): O46.90 - Antepartum hemorrhage, unspecified, unspecified trimester Status: Acute (2) Preeclampsia: Code(s): O14.90 - Unspecified pre-eclampsia, unspecified trimester Status: Acute Transfer Discharge Sum: Med Medications Active and Home Medications: Home Medications albuterol sulfate 90 mcg/actuation aerosol inhaler 2 inh inhalation Q4H PRN Shortness Of Breath 08/21/21 [History Confirmed 01/07/24] montelukast 10 mg tablet 10 mg PO DAILY 08/21/21 [History Confirmed 01/07/24] sertraline 50 mg tablet 100 mg PO DAILY 08/21/21 [History Confirmed 01/07/24] ondansetron 4 mg disintegrating tablet 4 mg PO Q6H PRN nausea and vomiting #20 tabs 12/31/23 [Rx Confirmed 01/07/24] Zyrtec 10 mg PO QHS 01/07/24 [History Confirmed 01/07/24] labetalol 200 mg tablet 200 mg PO Q12H #60 tabs 01/08/24 [Rx] nifedipine 60 mg tablet,extended release 24 hr (Procardia XL) 60 mg PO BID 01/12/24 [History] Transfer Discharge Sum: Hosp Hospital Course Hospital course: 33 y/o G1 at 34 3/7 weeks with gestational hypertension who awoke in a pool of blood. She presented to the hospital, where the bleeding stopped, but blood pressures remained elevated. Consultation with MFM at [facility] - Dr. Rangel - and decided to offer transfer to [facility] for perinatology and neonatology services. The patient agreed and she was transferred to [facility] by ambulance.
== END 2024-01-12 10:30 | disposition short-term general hospital (02) | DRG 832 ==
PROVIDERS: Admitting Provider Obstetrics & Gynecology; PCP Registered Nurse; Visit Provider Obstetrics & Gynecology
DX: O46.93 Antepartum hemorrhage, unspecified, third trimester (principal); O14.93 Unspecified pre-eclampsia, third trimester; O13.3 Gestational [pregnancy-induced] hypertension without significant proteinuria, third trimester; O40.3XX0 Polyhydramnios, third trimester, not applicable or unspecified; O99.513 Diseases of the respiratory system complicating pregnancy, third trimester; O99.343 Other mental disorders complicating pregnancy, third trimester; Z3A.34 34 weeks gestation of pregnancy; J45.909 Unspecified asthma, uncomplicated; F41.9 Anxiety disorder, unspecified
CPT/HCPCS: 36415; 59025; 76815; 80053; 84550; 85025; A9270; G0378; G0379